=== PATIENT | male | born 1970 | race Two or more races ===

== ENCOUNTER 2019-06-01 16:38 | Emergency (ER) | payer SELFPAY ==
[~2019-06-01] VITALS: Ht 180.3 cm; Wt 91.6 kg
--- NOTE | 2019-06-01 16:55 | NUR ---
PT C/O SHAPR CP AND COUGH X3 DAYS. COUGH IS MAKING HIS THROAT SORE. CONNECTED TO MONITORING. CALL LIGHT IN REACH. MD AT BEDSIDE FOR ASSESSMENT.
[2019-06-01] MEDS ORDERED: SODIUM CHLORIDE FLUSH 10ML SYR IVF ONE (17:00)
[2019-06-01] MEDS ORDERED: SODIUM CHLORIDE 0.9% 1,000ML IVBOLUS ONE (17:00)
--- NOTE | 2019-06-01 17:17 | NUR ---
IV STARTED BY [facility]. LABS DRAWN AND SENT. FLU SWAB COLLECTED AND TAKEN TO LAB. IVF STARTED PER MAR. XRAY COMPLETE.
[2019-06-01 17:24] LABS: BASOPHILS # (AUTO) 0.03 x10^3/uL (0-0.1); BASOPHILS % (AUTO) 0 % (0-1); EOSINOPHILS # (AUTO) 0.21 x10^3/uL (0-0.4); EOSINOPHILS % (AUTO) 3 % (1-7); LYMPHOCYTES # (AUTO) 2.35 x10^3/uL (1-3.4); LYMPHOCYTES % (AUTO) 32 % (22-44); MD NO; MEAN CORPUSCULAR HEMOGLOBIN 31.3 pg (27.5-34.5); MEAN CORPUSCULAR HGB CONC 34.2 g/dL (33.2-36.2); MEAN CORPUSCULAR VOLUME 91.6 fL (81-97); MEAN PLATELET VOLUME 8.6 fL (7.4-10.4); MONOCYTES # (AUTO) 0.53 x10^3/uL (0.2-0.8); MONOCYTES % (AUTO) 7 % (2-9); NEUTROPHILS % (AUTO) 57 % (42-75); PLATELET COUNT 221 x10^3/uL (130-400); RED BLOOD COUNT 4.69 x10^6/uL (4.38-5.82); RED CELL DISTRIBUTION WIDTH 12.8 % (9.4-14.8)
[2019-06-01 17:34] LABS: ALANINE AMINOTRANSFERASE 30 U/L (12-78); ALBUMIN 3.4 g/dL (3.4-5.0); ANION GAP 8 mmol/L (5-15); CALCIUM 8.2 mg/dL (8.5-10.1); CHLORIDE 107 mmol/L (98-107); CREATININE 0.85 mg/dL (0.7-1.3)
[2019-06-01 17:39] LABS: ALKALINE PHOSPHATASE 83 U/L (45-117); BILIRUBIN,TOTAL 0.4 mg/dL (0.2-1.0); TOTAL PROTEIN 7.2 g/dL (6.4-8.2); TROPONIN I < 0.015 ng/mL (0.000-0.045)
--- NOTE | 2019-06-01 17:56 | NUR ---
BREAK RN: PT RESTING IN ROOM. NO ACUTE DISTRESS NOTED. FAMILY AT BEDSIDE. VS STABLE. WILL CONTINUE TO MONITOR WHILE PRIMARY KELSY OGLESBY IS ON BREAK.
[2019-06-01 18:00] LABS: RAPID INFLUENZA A Negative (Negative); RAPID INFLUENZA B Negative (Negative)
[2019-06-01] MEDS ORDERED: KETOROLAC 30 MG/1 ML ONE (18:14)
--- NOTE | 2019-06-01 18:18 | NUR ---
MEDS ADMIN PER JUN. PT RESTING ON COREY. JULIO CESAR. RECEIVED NEW ORDER FOR CTA.
[2019-06-01] MEDS ORDERED: KETOROLAC 30 MG/1 ML IVPush ONE (18:30)
--- NOTE | 2019-06-01 18:58 | NUR ---
PT AT CT
[2019-06-01] MEDS ORDERED: OMNIPAQUE 350 MG/ML, 100ML BOTTLE ONE (19:09)
--- NOTE | 2019-06-01 19:19 | NUR ---
ALL RESULTS ARE BACK AT THIS TIME. CHART UP FOR RECHECK.
[2019-06-01 19:21] VITALS: BP 111/68
== END 2019-06-01 19:38 | disposition home or self-care (01) ==
LOC: ED 17:24
DX: J20.8 Acute bronchitis due to other specified organisms (principal); R04.2 Hemoptysis; B97.89 Other viral agents as the cause of diseases classified elsewhere
CPT/HCPCS: 36415; 71045; 71275; 80053; 84484; 85025; 87400; 93005; 96374; 99284; J1885; J7030; Q9967